=== PATIENT | female | born 1980 | race Caucasian/White ===

== ENCOUNTER 2017-06-29 17:15 | Emergency (ER) | payer BC ==
[~2017-06-29] VITALS: Ht 160 cm; Wt 56.7 kg
[2017-06-29 17:41] VITALS: BP 95/47
[2017-06-29] MEDS ORDERED: CYCL10TA2 PO (18:09)
--- NOTE | 2017-06-29 18:09 | PHYS DOC ---
Past Medical History Past Medical History: Endometriosis Past Surgical History: Other Additional Past Surgical Histo: LIPOSUCTION, LAPROSCOPY FOR ENDOMETRIOSIS Alcohol Use: Rarely Drug Use: None Adult General Chief Complaint Chief Complaint: LOWER BACK PAIN OR INJURY [facility] HPI Patient is a 36 year old female presents to the emergency department stating that she is having right lower back pain radiates up into the back area. She denies any injury or trauma. Patient states that she was seen by the urgent care center approximately a week ago was placed on tramadol with Tylenol. She states that this was a muscle relaxer they provided for her. She states that they gave her a steroid shot in the office. Patient states she continues to have pain and discomfort. She denies any loss of bowel or bladder. Denies any numbness or tingling down to the lower extremity. Review of Systems Review of Systems Constitutional: Denies fever or chills [] Eyes: Denies change in visual acuity, redness, or eye pain [] HENT: Denies nasal congestion or sore throat [] Respiratory: Denies cough or shortness of breath [] Cardiovascular: No additional information not addressed in HPI [] GI: Denies abdominal pain, nausea, vomiting, bloody stools or diarrhea [] : Denies dysuria or hematuria [] Musculoskeletal: right lower back pain denies joint pain [] Integument: Denies rash or skin lesions [] Neurologic: Denies headache, focal weakness or sensory changes [] Endocrine: Denies polyuria or polydipsia [] Allergies Allergies Allergies Coded Allergies Type Severity Reaction Last Updated Verified Penicillins Allergy Severe Swelling 06/29/17 Yes Physical Exam Physical Exam Constitutional: Well developed, well nourished, no acute distress, non-toxic appearance. [] HENT: Normocephalic, atraumatic, bilateral external ears normal, oropharynx moist, no oral exudates, nose normal. [] Eyes: PERRLA, EOMI, conjunctiva normal, no discharge. [] Neck: Normal range of motion, no tenderness, supple, no stridor. [] Cardiovascular:Heart rate regular rhythm, no murmur [] Lungs & Thorax: Bilateral breath sounds clear to auscultation [] Skin: Warm, dry, no erythema, no rash. [] Back: No lumbar spine tenderness, no crepitus no deformities no step-offs noted. Patient did have tenderness along the right lower back area. Extremities: No tenderness, no cyanosis, no clubbing, ROM intact, no edema. Peripheral pulses 2+ cap refill brisk less than 2 seconds. Neurologic: Alert and oriented X 3, normal motor function, normal sensory function, no focal deficits noted. [] Psychologic: Affect normal, judgement normal, mood normal. [] Current Patient Data Vital Signs Vital Signs Date Time Temp Pulse Resp B/P (MAP) Pulse Ox O2 Delivery O2 Flow Rate FiO2 06/29/17 17:41 98.4 86 18 98 Room Air 98.4 Lab Values Laboratory Tests Test 06/29/17 17:04 POC Urine HCG, Qualitative Hcg negative (Negative) EKG EKG [] Radiology/Procedures Radiology/Procedures [] Course & Med Decision Making Course & Med Decision Making Pertinent Labs and Imaging studies reviewed. (See chart for details) Spoke with patient regards to using Flexeril help with muscle relaxation. She was informed that this medication will cause drowsiness do not take any be alert and oriented. Patient was concerned that she takes care of 2 children at home during the day. Explained to her that she'll need to take them at night. Patient was also instructed to use ibuprofen for pain and discomfort. Also recommended ice packs on 20 minutes off 20 minutes several times a day. Patient was also recommended to follow-up with her primary care physician if she continues to have increased pain and discomfort as she may need to have physical therapy involved. Patient will be discharged home in stable condition signs and symptoms to return back to emergency department as been provided. Discharge instructions was provided to the patient by nursing staff in which patient was concerned that nothing had been done for her here in the emergency department. Spoke with patient regards to what she was wanting to be done patient states I don't know as I am not a doctor and did not know what needs to be ordered. Spoke with patient regards to the her denying urinary symptoms, denying numbness and tingling down to the lower extremities. Also spoke with patient in regards to note, no injury. Also spoke with her in regards to my assessment with no spinal tenderness upon the lumbar spine area that she had tenderness on the right lower back area. Patient states that she feels that she needs something more for pain when I spoke with patient and asked her what she was wanting for pain and discomfort patient states I don't know when I'm wanting she says that she feels that she needs to have something for pain and discomfort. Spoke with patient regards to having tramadol at home in which she states that she does not like the feeling of the tramadol nor does she want to take anything that is sedated. Explained to patient that anything stronger than tramadol would be sedating. Patient still feels that there should be more done here in the emergency department. Patient continues to deny any trauma or injury to her back area. [] Dragon Disclaimer Dragon Disclaimer This electronic medical record was generated, in whole or in part, using a voice recognition dictation system. Departure Departure Impression: Primary Impression: Back pain Disposition: HOME, SELF-CARE Condition: STABLE Referrals: JANIE ARREGUIN (PCP) Patient Instructions: Back Pain, Adult, [id number] Additional Instructions: Activity as tolerated. Ibuprofen 600-800 mg every 8 hours with food stop taking few develop an upset stomach. Flexeril will cause drowsiness do not take any be alert and oriented. This is medication for muscle relaxation. Ice packs on 20 minutes off 20 minutes several times a day. Follow-up with your primary care physician in the next 7-10 days. Return back to emergency prior signs and symptoms of become worse. Scripts Cyclobenzaprine Hcl (CYCLOBENZAPRINE HCL) 10 Mg Tablet 10 MG PO TID, #30 TAB Prov: NAOMIE RINALDI APRN 06/29/17 NAOMIE RINALDI APRN Jun 29, 2017 18:09
== END 2017-06-29 18:15 | disposition home or self-care (01) ==
LOC: ER 17:15
DX: M54.5 Low back pain (principal); Z88.0 Allergy status to penicillin
CPT/HCPCS: 81025; 99283